=== PATIENT | male | born 1985 | race American Indian/Alaskan Native ===

== ENCOUNTER 2019-08-21 11:54 | Emergency (ER) | payer SELFPAY ==
[2019-08-21] MEDS ORDERED: dexAMETHasone 4 MG/ML VIAL IM ONE (13:32)
[2019-08-21] MEDS ORDERED: PENICILLIN G BENZATHINE 1.2 MILLION UNIT/2 ML INJ IM STA (13:32)
--- NOTE | 2019-08-21 13:36 | Emergency Department Report ---
ED ENT HPI - General Chief complaint: Sore Throat Stated complaint: SORE THROAT Time Seen by Provider: 08/21/19 13:11 Source: patient Mode of arrival: Ambulatory Limitations: No Limitations - History of Present Illness Initial comments: 34-year-old -[place] male presents much department complaining of sore throat for the last 3-4 days worsening since the onset worse with eating and drinking. With fever sensations. No hemoptysis no hematemesis or hematochezia no chest pain or palpitations no shortness of breath MD complaint: sore throat -: days(s) Location: throat Severity: moderate Consistency: constant Improves with: none Worsens with: swallowing Associated Symptoms: pain with swallowing, sore throat. denies: gum swelling, toothache, tinnitus, discharge from ear - Related Data Allergies Allergy/AdvReac Type Severity Reaction Status Date / Time No Known Allergies Allergy Unverified 08/21/19 12:35 ED Dental HPI - General Chief complaint: Sore Throat Stated complaint: SORE THROAT Time Seen by Provider: 08/21/19 13:11 Source: patient Mode of arrival: Ambulatory Limitations: No Limitations - Related Data Allergies Allergy/AdvReac Type Severity Reaction Status Date / Time No Known Allergies Allergy Unverified 08/21/19 12:35 ED Review of Systems ROS: Stated complaint: SORE THROAT Other details as noted in HPI Comment: All other systems reviewed and negative ED Past Medical Hx - Past Medical History Previous Medical History?: No Hx Hypertension: No Hx CVA: No Hx Heart Attack/AMI: No Hx Congestive Heart Failure: No Hx Diabetes: No Hx Deep Vein Thrombosis: No Hx Pulmonary Embolism: No Hx GERD: No Hx Liver Disease: No Hx Renal Disease: No Hx of Cancer: No Hx Sickle Cell Disease: No Hx Arthritis: No Hx Headaches / Migraines: No Hx Seizures: No Hx Kidney Stones: No Hx Psychiatric Treatment: No Hx Asthma: No Hx COPD: No Hx Tuberculosis: No Hx Dementia: No Hx HIV: No - Surgical History Past Surgical History?: No Hx Coronary Stent: No Hx Open Heart Surgery: No Hx Pacemaker: No Hx Internal Defibrillator: No Hx Cholecystectomy: No Hx Appendectomy: No Hx Breast Surgery: No - Social History Smoking Status: Current Every Day Smoker Substance Use Type: Marijuana ED Physical Exam - General Limitations: No Limitations General appearance: alert, in no apparent distress - Head Head exam: Present: atraumatic, normocephalic - Eye Eye exam: Present: normal appearance, PERRL, EOMI - ENT ENT exam: Present: mucous membranes moist, other ((is erythematous and swollen. Tongue and uvula are midline. Small amount of exudate to the left pharyngeal region. No abscess is noted. No excessive drooling) - Neck Neck exam: Present: normal inspection, lymphadenopathy - Respiratory Respiratory exam: Present: normal lung sounds bilaterally. Absent: respiratory distress - Cardiovascular Cardiovascular Exam: Present: regular rate, normal rhythm. Absent: systolic murmur, diastolic murmur, rubs, gallop - GI/Abdominal GI/Abdominal exam: Present: soft, normal bowel sounds - Rectal Rectal exam: Present: deferred - Extremities Exam Extremities exam: Present: normal inspection - Back Exam Back exam: Present: normal inspection - Neurological Exam Neurological exam: Present: alert, oriented X3 - Psychiatric Psychiatric exam: Present: normal affect, normal mood - Skin Skin exam: Present: warm, dry, intact, normal color. Absent: rash ED Course Vital Signs 08/21/19 08/21/19 12:01 12:33 Temperature 98.3 F 98.3 F Pulse Rate 57 L 57 L Respiratory 18 18 Rate Blood Pressure 134/78 Blood Pressure 132/78 [Right] O2 Sat by Pulse 100 100 Oximetry ED Medical Decision Making - Medical Decision Making 34-year-old -[place] male presents emergency Department with pharyngitis airway is patent speech is normal. He is requesting injectable medicine. The patient does have an active infection but poor follow-up and also we'll treat him treatment accordance in the emergency department Critical care attestation.: If time is entered above; I have spent that time in minutes in the direct care of this critically ill patient, excluding procedure time. ED Disposition Clinical Impression: Pharyngitis Disposition: DC-01 TO HOME OR SELFCARE Is pt being admited?: No Does the pt Need Aspirin: No Condition: Stable Instructions: Pharyngitis (ED) Referrals: [facility] [Provider Group] - 3-5 Days
[2019-08-21 14:12] VITALS: BP 130/74
== END 2019-08-21 14:11 | disposition home or self-care (01) ==
LOC: ED 11:54
DX: J02.9 Acute pharyngitis, unspecified (principal); F17.200 Nicotine dependence, unspecified, uncomplicated; F12.10 Cannabis abuse, uncomplicated
CPT/HCPCS: 96372; 99282; J0561; J1100